=== PATIENT | female | born 1960 | race Caucasian/White ===

== ENCOUNTER 2022-08-06 14:52 | Outpatient (CLI) | payer BC | END 2022-08-06 14:53 | disposition home or self-care (01) | LOC: CSHMAMMO 14:52 | PROVIDERS: ATTEND Family Medicine | DX: Z12.31 Encounter for screening mammogram for malignant neoplasm of breast (principal); Z91.89 Other specified personal risk factors, not elsewhere classified; Z80.3 Family history of malignant neoplasm of breast | CPT/HCPCS: 77063; 77067 ==

== ENCOUNTER 2022-08-14 05:51 | Day surgery (SDC) | payer BC ==
[2022-08-13 09:23] VITALS: BMI 35.0
[2022-08-14] MEDS ORDERED: PROPOFOL 20 ML ONE (06:43)
== END 2022-08-14 09:04 | disposition home or self-care (01) ==
LOC: CSHSDC 05:51
PROVIDERS: ATTEND Surgery
PROC: 0DB68ZZ Excision of Stomach, Via Natural or Artificial Opening Endoscopic (ICD-10-PCS; principal; 2022-08-14)
DX: K29.70 Gastritis, unspecified, without bleeding (principal); K44.9 Diaphragmatic hernia without obstruction or gangrene; K31.89 Other diseases of stomach and duodenum; K21.9 Gastro-esophageal reflux disease without esophagitis; E66.01 Morbid (severe) obesity due to excess calories; Z68.35 Body mass index [BMI] 35.0-35.9, adult; I25.10 Atherosclerotic heart disease of native coronary artery without angina pectoris; E03.9 Hypothyroidism, unspecified; I10 Essential (primary) hypertension; E78.5 Hyperlipidemia, unspecified; Z79.82 Long term (current) use of aspirin; Z79.899 Other long term (current) drug therapy
CPT/HCPCS: 88305; J2704

== ENCOUNTER 2023-02-18 13:21 | Outpatient (CLI) | payer BC | END 2023-02-18 13:22 | disposition home or self-care (01) | LOC: CSHMRI 13:21 | PROVIDERS: ATTEND Physical Medicine & Rehabilitation | DX: M99.53 Intervertebral disc stenosis of neural canal of lumbar region (principal); M48.061 Spinal stenosis, lumbar region without neurogenic claudication | CPT/HCPCS: 72148 ==

== ENCOUNTER 2023-05-04 06:51 | Inpatient (IN) | payer BC ==
[2023-05-04] MEDS ORDERED: Pantoprazole 40 MG VIAL ONE (08:04)
[2023-05-04] MEDS ORDERED: Ondansetron PF 4 MG/2 ML Vial ONE (08:04)
[2023-05-04 08:14] LABS: #Monocytes 0.3 10x3/uL (0.0-1.1); #Neutrophils 6.4 10x3/uL (1.5-8.4); %Basophils 0.4 % (0.0-2.0); %Eosinophils 0.3 % (0.0-6.0); %Lymphocytes 11.2 % (18.0-47.0); %Monocytes 3.3 % (0.0-10.0); %Neutrophils 84.5 % (40.0-75.0); Hemoglobin 7.5 g/dL (12.0-15.5); Mean Corpuscular HGB CONC 32.3 g/dL (32.0-36.0); Mean Corpuscular Hemoglobin 29.5 pg (27.0-33.0); Mean Corpuscular Volume 91.3 fl (81.6-98.3); Mean Platelet Volume 10.8 fl (7.4-10.4); Platelet Count 283 10x3/uL (150-450); RBC Distribution Width 13.9 % (11.5-14.5); Red Blood Cell (RBC) Count 2.54 10x6/uL (3.90-5.03); White Blood Cell (WBC) Count 7.6 10x3/uL (3.5-10.5)
[2023-05-04 08:22] LABS: INR-International Normal Ratio 1.1; PTT 22.2 sec (22.0-33.0); Prothrombin Time 12.3 sec (9.5-12.1)
[2023-05-04 08:28] LABS: ALT (SGPT) 22 U/L (8-55); AST (SGOT) 18 U/L (5-34); Albumin 2.5 g/dL (3.4-4.8); Alkaline Phosphatase 89 U/L (40-110); Anion Gap 11 mmol/L (10-20); BUN (Urea Nitrogen) 14 mg/dL (9.8-20.1); Bilirubin, Total 0.3 mg/dL (0.2-1.2); Calc. Creatinine Clearance 0 mL/min (70-130); Carbon Dioxide 20 mmol/L (23-31); Chloride 119 mmol/L (98-107); Estimated GFR 101; Globulin 1.1 g/dL (2.4-3.5); Glucose 117 mg/dL (80-115); Lipase 4 U/L (8-78); Potassium 2.9 mmol/L (3.5-5.1); Protein, Total 3.6 g/dL (5.8-8.1); Sodium 147 mmol/L (136-145)
[2023-05-04 08:31] LABS: Calcium 6.5 mg/dL (7.8-10.44)
[2023-05-04] MEDS ORDERED: Potassium Chloride 20 MEQ/100 ML PREMIX BAG ONE ×2 (09:12→13:47)
[2023-05-04 09:13] LABS: Magnesium 1.9 mg/dL (1.6-2.6)
[2023-05-04] MEDS ORDERED: Ondansetron PF 4 MG/2 ML Vial IVP PRN (10:09)
[2023-05-04] MEDS ORDERED: Acetaminophen 325 MG TAB PO PRN (10:09)
[2023-05-04] MEDS ORDERED: ALPRAZolam 0.25 MG TAB PO PRN (10:13)
[2023-05-04] MEDS ORDERED: Pantoprazole 80 MG in Sodium Chloride 0.9% 100 ML IVPB SCH (10:15)
[2023-05-04] MEDS ORDERED: Magnesium 2 GM/50 ML(in water) 2 GM in Premix Bag 1 BAG IVPB SCH ×2 (14:30→20:30)
[2023-05-04] MEDS ORDERED: Pregabalin 50 MG CAP PO SCH (15:00)
[2023-05-04] MEDS ORDERED: Calcium Gluconate 4.6 MEQ in Sodium Chloride 0.9% 100 ML IVPB SCH ×2 (15:30→20:30)
[2023-05-04 16:40] LABS: Hemoglobin 8.9 g/dL (12.0-15.5)
[2023-05-04 16:50] LABS: Anion Gap 13 mmol/L (10-20); BUN (Urea Nitrogen) 13 mg/dL (9.8-20.1); Calc. Creatinine Clearance 0 mL/min (70-130); Calcium 7.9 mg/dL (7.8-10.44); Carbon Dioxide 19 mmol/L (23-31); Chloride 115 mmol/L (98-107); Estimated GFR 100; Glucose 78 mg/dL (80-115); Potassium 4.2 mmol/L (3.5-5.1); Sodium 143 mmol/L (136-145)
[2023-05-04] MEDS ORDERED: PROPOFOL 20 ML ONE ×2 (17:28→18:13)
[2023-05-04] MEDS ORDERED: Lidocaine 1% PF 5 ML VIAL ONE (17:38)
[2023-05-04] MEDS ORDERED: EPINEPHrine 1 MG/10 ML Abboject SYRINGE ONE (19:33)
[2023-05-04] MEDS: Estradiol 1 MG TAB PO SCH (21:02)
[2023-05-04] MEDS: Pregabalin 50 MG CAP PO SCH (21:04)
[2023-05-04] MEDS: Lactated Ringer's 1,000 ML IV SCH (21:08)
[2023-05-04] MEDS: Sucralfate 1 GM/10 ML UDCUP PO SCH (21:53)
[2023-05-04 22:44] LABS: Hemoglobin 8.6 g/dL (12.0-15.5)
[2023-05-05] MEDS: Sucralfate 1 GM/10 ML UDCUP PO SCH ×4 (02:24→21:55)
[2023-05-05 03:32] LABS: #Eosinphils 0.1 10x3/uL (0.0-0.5); #Monocytes 0.4 10x3/uL (0.0-1.1); #Neutrophils 3.2 10x3/uL (1.5-8.4); %Basophils 0.5 % (0.0-2.0); %Eosinophils 1.9 % (0.0-6.0); %Neutrophils 55.4 % (40.0-75.0); Mean Corpuscular HGB CONC 32.5 g/dL (32.0-36.0); Mean Corpuscular Hemoglobin 29.3 pg (27.0-33.0); Mean Corpuscular Volume 90.1 fl (81.6-98.3); Mean Platelet Volume 10.7 fl (7.4-10.4); Platelet Count 255 10x3/uL (150-450); RBC Distribution Width 14.7 % (11.5-14.5); Red Blood Cell (RBC) Count 2.73 10x6/uL (3.90-5.03); White Blood Cell (WBC) Count 5.8 10x3/uL (3.5-10.5)
[2023-05-05 03:47] LABS: ALT (SGPT) 23 U/L (8-55); AST (SGOT) 19 U/L (5-34); Albumin 2.8 g/dL (3.4-4.8); Alkaline Phosphatase 90 U/L (40-110); Anion Gap 11 mmol/L (10-20); BUN (Urea Nitrogen) 10 mg/dL (9.8-20.1); Bilirubin, Total 0.4 mg/dL (0.2-1.2); Calc. Creatinine Clearance 0 mL/min (70-130); Calcium 7.9 mg/dL (7.8-10.44); Carbon Dioxide 22 mmol/L (23-31); Chloride 114 mmol/L (98-107); Estimated GFR 100; Globulin 1.3 g/dL (2.4-3.5); Glucose 101 mg/dL (80-115); Potassium 3.7 mmol/L (3.5-5.1); Protein, Total 4.1 g/dL (5.8-8.1); Sodium 143 mmol/L (136-145)
[2023-05-05] MEDS: Lactated Ringer's 1,000 ML IV SCH ×3 (07:39→11:03)
[2023-05-05] MEDS: Levothyroxine Sodium 125 MCG TAB PO SCH (07:39)
[2023-05-05] MEDS: Pregabalin 50 MG CAP PO SCH ×3 (08:58→21:55)
[2023-05-05] MEDS ORDERED: Bupropion 150 MG XL TAB PO SCH (09:00)
[2023-05-05 19:03] LABS: Hemoglobin 8.3 g/dL (12.0-15.5)
[2023-05-05] MEDS: Estradiol 1 MG TAB PO SCH (21:54)
[2023-05-06] MEDS: Lactated Ringer's 1,000 ML IV SCH (01:50)
[2023-05-06] MEDS: Sucralfate 1 GM/10 ML UDCUP PO SCH ×2 (01:51→08:38)
[2023-05-06 04:19] LABS: #Basophils 0.1 10x3/uL (0.0-0.2); #Eosinphils 0.3 10x3/uL (0.0-0.5); #Monocytes 0.3 10x3/uL (0.0-1.1); #Neutrophils 2.2 10x3/uL (1.5-8.4); %Basophils 0.9 % (0.0-2.0); %Lymphocytes 48.5 % (18.0-47.0); %Monocytes 5.3 % (0.0-10.0); %Neutrophils 39.1 % (40.0-75.0); Hemoglobin 8.1 g/dL (12.0-15.5); Mean Corpuscular HGB CONC 32.4 g/dL (32.0-36.0); Mean Corpuscular Hemoglobin 29.6 pg (27.0-33.0); Mean Corpuscular Volume 91.2 fl (81.6-98.3); Mean Platelet Volume 10.8 fl (7.4-10.4); Platelet Count 234 10x3/uL (150-450); RBC Distribution Width 14.6 % (11.5-14.5); Red Blood Cell (RBC) Count 2.74 10x6/uL (3.90-5.03); White Blood Cell (WBC) Count 5.7 10x3/uL (3.5-10.5)
[2023-05-06 04:38] LABS: Anion Gap 9 mmol/L (10-20); BUN (Urea Nitrogen) 7 mg/dL (9.8-20.1); Calc. Creatinine Clearance 0 mL/min (70-130); Carbon Dioxide 26 mmol/L (23-31); Chloride 112 mmol/L (98-107); Estimated GFR 100; Glucose 87 mg/dL (80-115); Potassium 3.4 mmol/L (3.5-5.1); Sodium 144 mmol/L (136-145)
[2023-05-06] MEDS: Levothyroxine Sodium 125 MCG TAB PO SCH (06:12)
[2023-05-06 06:16] LABS: Hemoglobin 8.2 g/dL (12.0-15.5)
[2023-05-06] MEDS: Pregabalin 50 MG CAP PO SCH (08:38)
[2023-05-06] MEDS ORDERED: Iron, Sodium Ferric Gluconate 250 MG in Sodium Chloride 0.9% 250 ML 250 ML IVPB SCH (09:30)
[2023-05-06] MEDS ORDERED: Potassium Chloride 20 MEQ TAB PO SCH (11:00)
[2023-05-06 13:04] VITALS: BP 120/57; TEMP 97.8
[2023-05-06] MEDS ORDERED: Atorvastatin Calcium 40 MG TAB PO SCH (21:00)
== END 2023-05-06 13:48 | disposition home or self-care (01) | DRG 378 ==
LOC: SUATTDRO 06:51 → CSHERS 06:51 → CSHTELE 13:30 → OBSVTOIN 13:30
PROVIDERS: ADMIT Internal Medicine; ATTEND Internal Medicine
PROC: 3E0G8GC Introduction of Other Therapeutic Substance into Upper GI, Via Natural or Artificial Opening Endoscopic (ICD-10-PCS; principal; 2023-05-04)
PROC: 0W3P8ZZ Control Bleeding in Gastrointestinal Tract, Via Natural or Artificial Opening Endoscopic (ICD-10-PCS; 2023-05-04)
PROC: 30233N1 Transfusion of Nonautologous Red Blood Cells into Peripheral Vein, Percutaneous Approach (ICD-10-PCS; 2023-05-04)
DX: K28.4 Chronic or unspecified gastrojejunal ulcer with hemorrhage (principal); D62 Acute posthemorrhagic anemia; E87.0 Hyperosmolality and hypernatremia; E03.9 Hypothyroidism, unspecified; I25.10 Atherosclerotic heart disease of native coronary artery without angina pectoris; E87.6 Hypokalemia; E87.8 Other disorders of electrolyte and fluid balance, not elsewhere classified; E83.51 Hypocalcemia; F39 Unspecified mood [affective] disorder; E78.5 Hyperlipidemia, unspecified; E78.00 Pure hypercholesterolemia, unspecified; F32.A Depression, unspecified; Z90.710 Acquired absence of both cervix and uterus; Z90.49 Acquired absence of other specified parts of digestive tract; Z79.899 Other long term (current) drug therapy; Z79.82 Long term (current) use of aspirin; Z98.890 Other specified postprocedural states; Z95.1 Presence of aortocoronary bypass graft
CPT/HCPCS: 36415; 36416; 36430; 80048; 80053; 83690; 83735; 85014; 85018; 85025; 85610; 85730; 86850; 86900; 86901; 93005; 94760; 96374; 96375; C9113; J0171; J0612; J2405; J2704; J2916; J3475; J3480; J3490; J7050; J7120; P9016

== ENCOUNTER 2023-07-30 14:40 | Outpatient (CLI) | payer BC ==
[~2023-07-30 14:40] MED LIST: Iopamidol 300 61% 100 ML VIAL FS ONE
== END 2023-07-30 14:41 | disposition home or self-care (01) ==
LOC: CSHCT 14:40
PROVIDERS: ATTEND Surgery
DX: R10.12 Left upper quadrant pain (principal); R19.5 Other fecal abnormalities
CPT/HCPCS: 74177; 82565; Q9967

== ENCOUNTER 2023-12-09 17:20 | Emergency (ER) | payer BC, OTHER | END 2023-12-09 18:55 | disposition home or self-care (01) | LOC: EEVIPCON 17:20 → CSHERS 17:20 | DX: S30.0XXA Contusion of lower back and pelvis, initial encounter (principal); E03.9 Hypothyroidism, unspecified; E78.00 Pure hypercholesterolemia, unspecified; I10 Essential (primary) hypertension; W18.39XA Other fall on same level, initial encounter | CPT/HCPCS: 72170 ==

== ENCOUNTER 2023-12-31 09:57 | Day surgery (SDC) | payer BC, OTHER ==
[2023-12-23 14:23] VITALS: BMI 20.9
[2023-12-31] MEDS ORDERED: Midazolam HCl 2 mg/2 ml Vial ONE (11:54)
[2023-12-31] MEDS ORDERED: PROPOFOL 40 ML ONE (11:54)
== END 2023-12-31 12:41 | disposition home or self-care (01) ==
LOC: CSHSDC 09:57
PROVIDERS: ATTEND Surgery
PROC: 0DJ08ZZ Inspection of Upper Intestinal Tract, Via Natural or Artificial Opening Endoscopic (ICD-10-PCS; principal; 2023-12-31)
DX: K28.3 Acute gastrojejunal ulcer without hemorrhage or perforation (principal); I10 Essential (primary) hypertension; I25.10 Atherosclerotic heart disease of native coronary artery without angina pectoris; E03.9 Hypothyroidism, unspecified; Z95.1 Presence of aortocoronary bypass graft
CPT/HCPCS: J2250; J2704

== ENCOUNTER 2025-08-01 10:27 | Emergency (ER) | payer BC ==
[2025-08-01 11:25] LABS: #Basophils 0.04 10x3/uL (0.0-0.2); #Eosinophils 0.07 10x3/uL (0.0-0.5); #Monocytes 0.20 10x3/uL (0.0-1.1); #Neutrophils 2.66 10x3/uL (1.5-8.4); %Basophils 1.0 % (0.0-2.0); %Eosinophils 1.8 % (0.0-6.0); %Lymphocytes 23.3 % (18.0-47.0); %Monocytes 5.2 % (0.0-10.0); %Neutrophils 68.7 % (40.0-75.0); Hematocrit 47.7 % (34.9-44.5); Hemoglobin 15.2 g/dL (12.0-15.5); Mean Corpuscular Hemoglobin 29.8 pg (27.0-33.0); Mean Corpuscular Volume 93.5 fL (81.6-98.3); Platelet Count 212 10x3/uL (150-450); Red Blood Cell (RBC) Count 5.10 10x6/uL (3.90-5.03); White Blood Cell (WBC) Count 3.87 10x3/uL (3.5-10.5)
[2025-08-01 11:40] LABS: ALT (SGPT) 24 U/L (Less than 34); AST (SGOT) 23 U/L (11-34); Albumin 4.2 g/dL (3.1-4.5); Alkaline Phosphatase 159 U/L (40-110); Anion Gap 12 mmol/L (10-20); BUN (Urea Nitrogen) 18 mg/dL (9.8-20.1); Bilirubin, Total 0.5 mg/dL (0.3-1.2); Calc. Creatinine Clearance 0 mL/min (70-130); Calcium 8.7 mg/dL (7.8-10.44); Carbon Dioxide 27 mmol/L (23-31); Chloride 107 mmol/L (98-107); Globulin 2.1 g/dL (2.4-3.5); Glucose 173 mg/dL (80-115); Potassium 4.0 mmol/L (3.5-5.1); Sodium 142 mmol/L (136-145)
[2025-08-01 11:44] LABS: Troponin I Less than 0.010 ng/mL (< 0.028)
[2025-08-01] MEDS ORDERED: Iopamidol 370 76% 100 ML VIAL ONE (12:59)
== END 2025-08-01 14:55 | disposition home or self-care (01) ==
LOC: CSHERS 10:27
DX: R42 Dizziness and giddiness (principal); E03.9 Hypothyroidism, unspecified; E78.00 Pure hypercholesterolemia, unspecified; I10 Essential (primary) hypertension; Z79.890 Hormone replacement therapy; Z79.899 Other long term (current) drug therapy
CPT/HCPCS: 70450; 70496; 70498; 80053; 84484; 85025; 93005; 96374; J2060; Q9967

== ENCOUNTER 2025-09-14 10:24 | Outpatient (CLI) | payer BC | END 2025-09-14 10:25 | disposition home or self-care (01) | LOC: CSHMAMMO 10:24 | PROVIDERS: ATTEND Family Medicine | DX: Z12.31 Encounter for screening mammogram for malignant neoplasm of breast (principal); Z80.3 Family history of malignant neoplasm of breast; Z91.89 Other specified personal risk factors, not elsewhere classified; R92.333 Mammographic heterogeneous density, bilateral breasts | CPT/HCPCS: 77063; 77067 ==